=== PATIENT | female | born 1955 | race Caucasian/White ===

== ENCOUNTER 2022-12-22 16:29 | Emergency (ER) | payer MEDICARE, SELFPAY ==
[2022-12-22 16:32] VITALS: BP 162/74; PULSE 73; RESP 20; TEMP 36.6; O2SAT 100; BMI 29.9
--- NOTE | 2022-12-22 16:36 | XR_ITS ---
The [address] [address] Patient Name: BALAJI MADSEN MRN: [id number] date: 1955 Sex: F Assigned Patient Location: ER Current Patient Location: ED.MAIN Accession/Order Number: [id number] Exam Date: 12/22/2022 16:45 Report Date: 12/22/2022 17:25 At the request of: CHANTAL WHEATLEY Procedure: XR forearm LT 2V EXAM: XR forearm LT 2V, XR wrist LT min 3V HISTORY: fall COMPARISON: None. TECHNIQUE: 2 views of the forearm and 3 views of the wrist FINDINGS: IMPRESSION: Comminuted dorsal displaced and dorsal angulated intra-articular fracture of the distal radius. Associated soft tissue edema. Radioscaphoid joint effusion. The remainder of the osseous structures exhibit no additional acute abnormalities. Degenerative changes of first carpometacarpal and triscaphe joints. Os triangular is present. Orthopedic surgical intervention is necessary Electronically authenticated by: SABRINA SONI Date: 12/22/2022 17:25
--- NOTE | 2022-12-22 16:37 | ED_ITS ---
HPI - Extremity Injury (Upper) General Chief Complaint: Extremity Injury, Upper Stated Complaint: LT ARM INJURY Time Seen by Provider: 12/22/22 16:30 History of Present Illness HPI narrative: patient is a 66-year-old female who presents to the emergency department for the evaluation of an injury to the left forearm that occurred just prior to arrival at home. She states she tripped over the dog and fell on an outstretched left arm. She is right-hand dominant. She denies head injury, loss of consciousness. She is able to ambulate. She denies any other associated injuries at this time. She does not take blood thinners. She reports most off her pain over the left mid forearm. No numbness or tingling to the hand. Related Data Previous Rx's Medication Instructions Recorded ondansetron 4 mg disintegrating 4 mg PO Q6H PRN nausea and 12/22/22 tablet vomiting #12 tabs oxycodone-acetaminophen 5 mg-325 1 tab PO Q6H PRN pain #15 tabs 12/22/22 mg tablet (Percocet) Allergies Allergy/AdvReac Type Severity Reaction Status Date / Time Penicillins AdvReac Unknown Verified 12/22/22 16:38 Review of Systems ROS Constitutional Denies: fever or chills Ears, nose, mouth, and throat Denies: neck pain Respiratory Denies: shortness of breath Gastrointestinal Denies: nausea or vomiting Musculoskeletal Reports: extremity pain; Denies: back pain or neck pain Integumentary/Breast Denies: rash Neurological Denies: headache Hematologic/Lymphatic Denies: easy bruising Allergic/Immunologic Denies: hives Exam Narrative Exam Narrative: Gen.: Awake, alert, in no distress Head: Normocephalic, atraumatic ENT: Moist mucous membranes, no evidence of head or facial injury, C-spine nontender Respiratory: No respiratory distress Extremities: diffuse tenderness of the left mid to distal forearm, unable to extend the left wrist due to pain, patient is able to wiggle the fingers of the left hand with good sensation to the fingertips. No bony tenderness of the proxi mal forearm, elbow or left shoulder. Psych: Normal mood and affect Neuro: No focal neuro deficit Skin: Warm, dry, intact Constitutional Vital Signs, click to edit/add: Last Vital Signs Temp 98 F 12/22/22 16:32 Pulse 73 12/22/22 16:32 Resp 20 12/22/22 16:32 BP 162/74 H 12/22/22 16:32 Pulse Ox 100 12/22/22 16:32 O2 Del Method Room Air 12/22/22 16:32 Course Vital Signs Vital signs: Vital Signs Temperature 98 F 12/22/22 16:32 Pulse Rate 73 12/22/22 16:32 Respiratory Rate 20 12/22/22 16:32 Blood Pressure 162/74 H 12/22/22 16:32 Pulse Oximetry 100 12/22/22 16:32 Oxygen Delivery Method Room Air 12/22/22 16:32 Temperature 98 F 12/22/22 16:32 Pulse Rate 73 12/22/22 16:32 Respiratory Rate 20 12/22/22 16:32 Blood Pressure 162/74 H 12/22/22 16:32 Pulse Oximetry 100 12/22/22 16:32 Oxygen Delivery Method Room Air 12/22/22 16:32 MDM - Extremity Injury (Upper) MDM Narrative Medical decision making narrative: x-rays of the left wrist and left forearm show a fracture of the left distal radius and a suspected fracture of the ulnar styloid process. The distal radius fracture appears impacted and mildly angulated. Patient is placed in a short posterior splint, Percocet given for pain. She was given a sling for comfort. Percocet sent home with the patient for this evening until she can fill a prescription. She has seen Dr. Pereira before for orthopedics and would like to follow with him for this fracture. She is instructed to call the office on Saturday. She is neurovascularly intact after splint and sling application. Return to the Emergency Room if symptoms change or worsen. She was strongly encouraged to elevate and ice the arm until she is seen by orthopedics. Medical Records Attestation: I reviewed the patient's medical records. Imaging Data XR left wrist/XR left forearm: Attestation: I have reviewed the pertinent imaging results. Discharge Plan Discharge Chief Complaint: Extremity Injury, Upper Clinical Impression: Closed fracture of left distal radius and ulna Patient Disposition: Home, Self-Care Time of Disposition Decision: 17:02 Condition: Good Prescriptions / Home Meds: New oxycodone-acetaminophen [Percocet] 5-325 mg tablet 1 tab PO Q6H PRN (Reason: pain) Qty: 15 0RF Rx Instructions: DX: S62.92XA ondansetron 4 mg tablet,disintegrating 4 mg PO Q6H PRN (Reason: nausea and vomiting) Qty: 12 0RF Instructions: Wrist Fracture in Adults (ED) Additional Instructions: Call Dr. Pereira's office Saturday ([phone]) to be scheduled. Use the sling for the next 3-5 days for comfort. Elevate and ice your arm as much as you can over the next several days until your ortho appointment Stand Alone Forms: Portal Instructions Referrals: SABRINA HIGGINS [Primary Care Provider] - 1 week
--- NOTE | 2022-12-22 16:42 | PC.NURSE ---
skin to right arm/wrist pink and warm, pulse present, able to move fingers without difficult. Ice applied and right extremity on pillow for comfort.
--- NOTE | 2022-12-22 16:47 | XR_ITS ---
The [address] [address] Patient Name: BALAJI MADSEN MRN: [id number] date: 1955 Sex: F Assigned Patient Location: ER Current Patient Location: ED.MAIN Accession/Order Number: [id number] Exam Date: 12/22/2022 16:45 Report Date: 12/22/2022 17:25 At the request of: CHANTAL WHEATLEY Procedure: XR wrist LT min 3V EXAM: XR forearm LT 2V, XR wrist LT min 3V HISTORY: fall COMPARISON: None. TECHNIQUE: 2 views of the forearm and 3 views of the wrist FINDINGS: IMPRESSION: Comminuted dorsal displaced and dorsal angulated intra-articular fracture of the distal radius. Associated soft tissue edema. Radioscaphoid joint effusion. The remainder of the osseous structures exhibit no additional acute abnormalities. Degenerative changes of first carpometacarpal and triscaphe joints. Os triangular is present. Orthopedic surgical intervention is necessary Electronically authenticated by: SABRINA SONI Date: 12/22/2022 17:25
[2022-12-22] MEDS: OXYCODONE HCL/ACETAMINOPHEN 5MG/325MG 1 TAB PO (16:53)
--- NOTE | 2022-12-22 17:09 | PC.NURSE ---
Splint applied to left arm per PA. Sling applied to left arm after splint application.
[2022-12-22] MEDS: OXYCODONE HCL/ACETAMINOPHEN 5MG/325MG 2 TAB PO (17:18)
== END 2022-12-22 17:29 | disposition home or self-care (01) ==
PROVIDERS: Emergency Provider Emergency Medicine; PCP Family Medicine
DX: S52.502A Unspecified fracture of the lower end of left radius, initial encounter for closed fracture (principal); S52.602A Unspecified fracture of lower end of left ulna, initial encounter for closed fracture; W01.0XXA Fall on same level from slipping, tripping and stumbling without subsequent striking against object, initial encounter
CPT/HCPCS: 29125; 73090; 73110; 99283